=== PATIENT | female | born 1955 | race Caucasian/White ===

== ENCOUNTER 2025-02-26 19:28 | Inpatient (IN) | payer OTHER, SELFPAY ==
[2025-02-26] VITALS (25 sets, daily range): BP systolic 116–174; BP diastolic 53–100; BMI 26.6
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
[2025-02-26] MEDS: ADACEL 0.5 ML IM (16:55)
[2025-02-26 17:30] LABS: % Basophils 0.4 % (0-2); % Eosinophils 1.1 % (0-6); % Immature Granulocytes 0.3 % (0-0.5); % Lymphocytes 12.5 % (20.5-51.1); % Monocytes 6.8 % (1.7-9.3); % Neutrophils 78.9 % (42.2-75.2); Absolute Eosinophils 0.1 10^3/uL (0-0.7); Absolute Lymphocytes 1.4 10^3/uL (1.2-3.4); Absolute Monocytes 0.8 10^3/uL (0.1-0.6); Absolute Neutrophils 8.8 10^3/uL (1.4-6.5); Hematocrit 43.6 % (37.0-47.0); Hemoglobin 15.1 g/dL (12.0-16.0); Mean Corp Hgb Conc. 34.6 g/dL (33.0-37.0); Mean Corpuscular Hgb 30.6 pg (27.0-31.0); Mean Corpuscular Volume 88.3 fL (81.0-99.0); Mean Platelet Volume 10.7 fL (7.4-10.4); Nucleated Red Blood Cells % 0 %; Platelet Count 219 10^3/uL (130-400); Red Blood Cell Count 4.94 10^6/uL (4.20-5.40); White Blood Cell Count 11.1 10^3/uL (4.8-10.8)
[2025-02-26] MEDS: OFIRMEV 100 IV (17:30)
[2025-02-26] MEDS: TRANDATE 10 MG IV ×4 (17:31→22:48)
[2025-02-26 17:53] LABS: ALT (SGPT) 29 U/L (0-35); AST (SGOT) 28 U/L (14-36); Albumin 4.8 g/dl (3.5-5.0); Alkaline Phosphatase 38 U/L (38-126); Blood Urea Nitrogen 21 mg/dl (7-17); Calcium 9.8 mg/dl (8.4-10.2); Carbon Dioxide 25 mmol/L (22-30); Chloride 107 mmol/L (98-107); Estimated Creatinine Clearance 55 ml/min; Glucose 108 mg/dl (70-99); Potassium 4.1 mmol/L (3.5-5.1); Sodium 142 mmol/L (135-145); Total Bilirubin 0.5 mg/dl (0.2-1.3); Total Protein 7.5 g/dl (6.3-8.2); eGFR > 60.00
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
[2025-02-26] MEDS: MIRALAX 17 GRAMS PO (22:27)
[2025-02-27] VITALS (7 sets, daily range): BP systolic 113–140; BP diastolic 56–69; BMI 25.0
[2025-02-27] MEDS: TYLENOL 650 MG PO ×2 (00:08→08:10)
--- NOTE | 2025-02-27 00:44 | PTCARENOTE ---
Received pt from ED RN. Pt is AAOx3, neuro checks Q4, pt able to move all extremities. NSR/sinus hang w/ BBB and prolonged QT on the monitor. Pt on RA O2 sat 95%, lungs clear. BRPx1. Wounds listed on the worklist, wound care provided. Pt c/o 03/28
pain, PRN Tylenol given (see MAR). CHG bath provided. Family at bedside. Call lopez in reach. Safe environment maintained.
[2025-02-27] MEDS: CLARITIN 10 MG PO ×2 (00:49→08:10)
[2025-02-27 04:59] LABS: Hematocrit 39.1 % (37.0-47.0); Hemoglobin 13.9 g/dL (12.0-16.0); Mean Corp Hgb Conc. 35.5 g/dL (33.0-37.0); Mean Corpuscular Volume 87.3 fL (81.0-99.0); Mean Platelet Volume 10.9 fL (7.4-10.4); Platelet Count 208 10^3/uL (130-400); Red Blood Cell Count 4.48 10^6/uL (4.20-5.40); Red Cell Dist. Width 12.9 % (11.5-14.5); White Blood Cell Count 8.2 10^3/uL (4.8-10.8)
[2025-02-27] MEDS: SYNTHROID 50 MCG PO (05:52)
--- NOTE | 2025-02-27 11:09 | PTCARENOTE ---
assessments per work list. medicated with tylenol for c/o mild headache with relief. oob to chair. tolerating oral intake. denies nausea. bruising,wounds per work list.
--- NOTE | 2025-02-27 11:24 | W.PN.HOSP.TC ---
Today's Communication/Plan
-
d/c
Assessment / Plan
Assessment / Plan
Gen: NAD, AAOx3.
Eyes: EOMI, PERRLA, no scleral icterus.
Neck: supple.
CV: RRR, +S1/S2, no m/r/g.
Resp: CTAB, no rales, wheezes, or rhonchi.
Abd: +BS, soft, NT, ND
Skin: No rashes.
Neuro: CN 2-12 intact, non-focal.
Psych: Normal mood and affect.
CT brain 02/26/25 at 1700: Suspect subtle trace amounts of subarachnoid hemorrhage in the right frontal lobe. No midline shift or herniation. Minimally depressed nasal bone fracture.
CT brain 02/26/25 at 2218: No acute intracranial abnormality noted.
Traumatic possible small SAH:
-repeat CT brain without SAH
-Neurosurgery saw consultation. I discussed the case with Dr. Yousif and she has cleared the patient for discharge.
-s/p multiple doses of Labetalol for goal SBP<140
Traumatic minimally depressed nasal bone fracture:
-OP ENT vs OMFS follow up
Other problems:
Leukocytosis, likely stress reaction, afebrile, resolved
Hypothyroidism: Cont Levoxyl
Hyperlipidemia: cont statin
and daughter updated at bedside.
FULL/SCDs
Total time spent on d/c = 33 min. This included today's physical exam, progress note, review of laboratory and diagnostic data, preparation of discharge documents and prescriptions, and discussions about the pt's hospital course and discharge plan
with the patient and other durable medical equipment technician involved in the patient's care.
Anticipated Discharge: Today
Subjective/Interval History
-
Date of Service: February 27, 2025
Denies chest pain, shortness of breath, headache, or any other new symptoms.
Objective Data
-
Labs:
Laboratory Results
02/27/25
04:31
WBC 8.2
Hgb 13.9
Hct 39.1
Plt Count 208
Vital Signs:
Vital Signs
Temp Pulse Resp BP Pulse Ox
97.8 F 67 13 115/69 96
02/27/25 08:00 02/27/25 10:00 02/27/25 10:00 02/27/25 10:00 02/27/25 10:00
I&O
02/26/25 02/27/25 02/28/25
06:59 06:59 06:59
Intake Total 820 / 820 360 / 360
Balance 820 / 820 360 / 360
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
--- NOTE | 2025-02-27 11:30 | CM ---
Spoke with patient to obtain information for assessment. Patient stated that she lives with her spouse in a [facility] in [place]. She described herself as independent with her ADLs, personal care, bathing and dressing. She can do household
chores, cook, clean and do laundry. She drives and can get to her appointments and do all of her own shopping. She stated that drives and can get to all of her appointments and does her own shopping. Patient never has had VN. She has not been to a
SNF in the past. She has a cane but no other DME. She stated that she walks daily at least a mile or so and stays active.
Patient has a prescription plan and uses, [facility] in [place] for all of her medications.
Her PCP is, Fredi Sargent.
Plan: Case management will continue to follow and assist with discharge planning. Patient would like to return home when cleared for discharge.
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
== END 2025-02-27 13:21 | disposition home or self-care (01) | DRG 84 ==
LOC: ICU 19:28
PROVIDERS: Physician Assistant; Registered Nurse; ADMITTING PHYSICIAN Internal Medicine; ATTENDING PHYSICIAN Internal Medicine; CONSULT PHYSICIAN Neurological Surgery; EMERGENCY PHYSICIAN Emergency Medicine; FAMILY PHYSICIAN Family Medicine
DX: S06.6XAA Traumatic subarachnoid hemorrhage with loss of consciousness status unknown, initial encounter (principal); S02.2XXA Fracture of nasal bones, initial encounter for closed fracture; V18.4XXA Pedal cycle driver injured in noncollision transport accident in traffic accident, initial encounter; Y93.55 Activity, bike riding; E78.5 Hyperlipidemia, unspecified; D72.829 Elevated white blood cell count, unspecified; E89.0 Postprocedural hypothyroidism
CPT/HCPCS: 70450; 70486; 80053; 85025; 85027; 90471; 90715; 93005; 96374; 96375; 96376; 99291